=== PATIENT | male | born 1955 | race Caucasian/White ===

== ENCOUNTER → 2016-12-30 | Outpatient (CLI) | payer OTHER ==
--- NOTE | 2016-12-30 09:40 | CARDIOVASCULAR REPORT ---
"Cerebrovascular Exam Indications: 785.9 Bruit. IMPRESSIONS 1. The bilateral vertebral arteries are patent with normal antegrade flow. 2. Study suggests less than 20% stenosis involving the right internal carotid artery. 3. Study suggests 20-49% stenosis involving the left internal carotid artery. Carotid duplex study. Complete study and Doppler flow study including spectral analysis, color and turner scale imaging. Height: Height: 175.3cm. Height: 69in. Weight: Weight: 103.4kg. Weight: 227.5lb. Body mass index: BMI: 33.7kg/m^2. Body surface area: BSA: 2.28m^2. Location: Vascular laboratory. Patient status: Outpatient. Tables: Arterial flow: + +--------+--------+ |Location |V sys |V ed | + +--------+--------+ |Right CCA - proximal|118cm/s |22.8cm/s| + +--------+--------+ |Right CCA - distal |92.3cm/s|19.6cm/s| + +--------+--------+ |Right ECA |117cm/s |--------| + +--------+--------+ |Right ICA - proximal|59.9cm/s|21.6cm/s| + +--------+--------+ |Right ICA - mid |93.8cm/s|29cm/s | + +--------+--------+ |Right ICA - distal |90.8cm/s|25cm/s | + +--------+--------+ |Right vertebral |52.6cm/s|--------| + +--------+--------+ |Left CCA - proximal |127cm/s |29.2cm/s| + +--------+--------+ |Left CCA - distal |80.5cm/s|19.9cm/s| + +--------+--------+ |Left ECA |71.7cm/s|--------| + +--------+--------+ |Left ICA - proximal |49.8cm/s|15.3cm/s| + +--------+--------+ |Left ICA - mid |78.6cm/s|29.7cm/s| + +--------+--------+ |Left ICA - distal |96.5cm/s|30.9cm/s| + +--------+--------+ |Left vertebral |50.7cm/s|--------| + +--------+--------+ Velocity ratios: + + + + + + | |Right, V sys|Right, V ed|Left, V sys|Left, V ed| + + + + + + |Max ICA/dist CCA|1.02 |1.48 |1.2 |1.55 | + + + + + + (Report amended ) Electronically signed by: Tano Ribera [id number]"
== END ==
LOC: RT 07:50
DX: R09.89 Other specified symptoms and signs involving the circulatory and respiratory systems (principal)